=== PATIENT | female | born 2000 ===

== ENCOUNTER 2019-06-23 13:30 | Inpatient (IN) | payer OTHER ==
[~2019-06-23] VITALS: Ht 162.6 cm; Wt 60.8 kg
[2019-07-06] MEDS ORDERED: PRENATAL TABLE1 EAC1 PO (10:46)
== END 2019-07-08 11:33 | disposition home or self-care (01) | DRG 807 ==
LOC: O/R 07-04 13:30 → OB/GYN 07-06 12:57 → LDR 07-06 12:57 → OB/GYN 07-06 18:05 → LDR 07-09 13:30
PROVIDERS: ADMIT Obstetrics & Gynecology
PROC: 10E0XZZ Delivery of Products of Conception, External Approach (ICD-10-PCS; principal; 2019-07-06)
PROC: 10907ZC Drainage of Amniotic Fluid, Therapeutic from Products of Conception, Via Natural or Artificial Opening (ICD-10-PCS; 2019-07-06)
PROC: 4A1HXCZ Monitoring of Products of Conception, Cardiac Rate, External Approach (ICD-10-PCS; 2019-07-06)
DX: O80 Encounter for full-term uncomplicated delivery (principal); Z37.0 Single live birth; Z3A.39 39 weeks gestation of pregnancy

== ENCOUNTER 2019-07-06 10:20 | Outpatient (CLI) | payer OTHER ==
[2019-07-06] MEDS ORDERED: PRENATAL TABLE1 EAC1 PO (10:46)
== END 2019-07-06 14:21 | disposition still patient (30) ==
LOC: OBS/DEL 10:20
DX: O47.1 False labor at or after 37 completed weeks of gestation (principal)